=== PATIENT | female | born 2000 | race Caucasian/White ===

== ENCOUNTER 2024-12-26 01:47 | Inpatient (IN) | payer OTHER, SELFPAY ==
[2024-12-26] VITALS (30 sets, daily range): BP systolic 99–148; BP diastolic 50–101; PULSE 72–127; TEMP 36.3–37.1
[2024-12-26] MEDS: LACTATED RINGER'S SOLUTION 1,000 ML 125 ML IV (02:20)
[2024-12-26 02:45] LABS: Hematocrit 37.7 % (36.0-48.0); Mean Corpuscular HGB Conc 34.5 g/dL (29.9-35.2); Mean Corpuscular Hemoglobin 30.7 pg (26.7-34.0); Mean Corpuscular Volume 88.9 fL (81.0-99.0); Mean Platelet Volume 11.4 fL (9.5-13.5); Platelet Count 167 10^3/uL (150-450); Red Blood Count 4.24 10^6/uL (4.20-5.40); Red Cell Distribution Width 13.3 % (11.0-15.0); White Blood Count 11.5 10^3/uL (4.0-11.0)
[2024-12-26 02:46] LABS: Bilirubin Urine NEGATIVE (NEGATIVE); Blood Urine SMALL (NEGATIVE); Clarity Urine CLEAR (CLEAR); Color Urine LT. YELLOW (YELLOW); Glucose Urine UA NEGATIVE (NEGATIVE); Ketones Urine 15 mg/dL (NEGATIVE); Leukocyte Esterase Urine NEGATIVE (NEGATIVE); Nitrite Urine NEGATIVE (NEGATIVE); Protein Urine NEGATIVE (NEG/TRACE); Urobilinogen Urine 0.2 EU/dL (0.2-1.0)
[2024-12-26 02:47] LABS: Urine Microscopic Indicated YES
[2024-12-26] MEDS: PENICILLIN G POTASSIUM 5,000,000 UNIT in 0.9 % SODIUM CHLORIDE 100 ML 200 UNIT IV (02:51)
[2024-12-26 02:52] LABS: RBC Urine 0-2 #/HPF (0-2); WBC Urine NONE SEEN #/HPF (NONE SEEN)
[2024-12-26 02:53] LABS: Bacteria Urine NONE SEEN #/HPF (NONE SEEN); Cast Seen? NONE SEEN #/LPF (NONE SEEN); Crystals Seen? None Seen #/HPF (None Seen); Mucus Urine NONE SEEN (NONE SEEN); Squamous Epithelial Cell Urine FEW #/LPF (NONE/RARE); Urine Culture Indicated NO
[2024-12-26 02:56] LABS: Amphetamine Screen Urine NEGATIVE (NEGATIVE); Barbiturates Screen Urine NEGATIVE (NEGATIVE); Benzodiazepines Screen Urine NEGATIVE (NEGATIVE); Buprenorphine Screen Urine NEGATIVE (NEGATIVE); Cannabinoid Screen Urine NEGATIVE (NEGATIVE); Cocaine Screen Urine NEGATIVE (NEGATIVE); Methadone Screen Urine NEGATIVE (NEGATIVE); Methamphetamines Screen Urine NEGATIVE (NEGATIVE); Opiate Screen Urine NEGATIVE (NEGATIVE); Oxycodone Screen Urine NEGATIVE (NEGATIVE); Phencyclidine Screen Urine NEGATIVE (NEGATIVE); Tricyclic Antidepressant Urine NEGATIVE (NEGATIVE)
--- NOTE | 2024-12-26 03:06 | PM.OBHP ---
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 Exam now at admission and no lesions noted, and patient states she has no c/o lesion, outbreaks or pain Labs Blood type: A (+) positive Rubella: nonimmune RPR/VDLR: nonreactive GBS status: positive HBsAG: negative Meds Home Medications and Allergies Allergies Allergy/AdvReac Type Severity Reaction Status Date / Time No Known Drug Allergies Allergy Verified 12/26/24 03:31 Exam Constitutional Vital Signs, click to edit/add: Last Vital Signs Pulse 106 H 12/26/24 02:56 BP 125/101 H 12/26/24 02:56 Documenting provider has reviewed patient's vital signs: yes Common normals: no apparent distress and average body habitus General appearance: cooperative, comfortable and well kempt Orientation/consciousness: Yes awake, Yes oriented to person, Yes oriented to place and Yes oriented to time HENMT Common normals: normocephalic Eye Common normals: EOMs intact bilaterally General eye: normal appearance of both eyes Neck & C-Spine Common normals: full ROM General: normal visual inspection Lymph Lymphatic: no lymphadenopathy noted Respiratory Common normals: normal respiratory effort, no retractions, no use of accessory muscles, clear to auscultation bilaterally and percussion normal Effort & inspection: able to speak in complete sentences Auscultation: clear to auscultation bilaterally Cardio Common normals: regular rate and regular rhythm Rate: regular rate Rhythm: regular rhythm GI Common normals: Normal to inspection, nondistended, normoactive bowel sounds present and non-tender Inspection: normal to inspection Palpation: soft Rectal Exam - Female: deferred Common normals: no CVA tenderness Back & Pelvis Common normals: no CVA tenderness Thoracic spine/upper back: normal to inspection Lumbar spine/lower back: normal to inspection Extremity Common normals: normal to inspection and full ROM Neuro Common normals: oriented x3 Sensorium/orientation: awake, alert, oriented to person, oriented to place and oriented to time Psych Common normals: mental status grossly normal, thought process normal, cooperative, affect normal, speech normal, activity/motor behavior normal, denies hallucinations, denies homicidal ideation and denies suicidal ideation Appearance: grossly normal Attitude: calm Activity/motor behavior: appropriate eye contact Results Labs Labs: Short CBC 12/26/24 Range/Units 02:20 WBC 11.5 H (4.0-11.0) 10^3/uL Hgb 13.0 (12.0-16.0) g/dL Hct 37.7 (36.0-48.0) % Plt Count 167 (150-450) 10^3/uL Urine 12/26/24 Range/Units 02:00 Urine Color Lt. yellow (YELLOW) Urine Clarity Clear (CLEAR) Urine pH 6.0 (5.0-9.0) Ur Specific [place] 1.020 (1.005-1.025) Urine Protein Negative (NEG/TRACE) mg/dL Urine Glucose (UA) Negative (NEGATIVE) mg/dL OB - A/P Assessment and Plan (1) Term : (2) Group B streptococcal bacteriuria: Plan admit for labor and delivery. Routine orders
[2024-12-26] MEDS: PENICILLIN G POTASSIUM 2,500,000 UNIT in 0.9 % SODIUM CHLORIDE 50 ML 100 UNIT IV (06:21)
[2024-12-26] MEDS: LIDOCAINE VISCOUS 2% 15 ML SOLUTION 5 ML TOPICAL (06:48)
[2024-12-26] MEDS: OXYTOCIN/0.9 % SODIUM CHLORIDE 20 UNITS/1,000 ML PLAST..BAG 999 UNIT IV (06:58)
[2024-12-26] MEDS: LIDOCAINE HCL 1% 200 MG/20 ML MDV INJ (06:59)
[2024-12-26] MEDS: GLYCERIN/WITCH HAZEL PADS 1 PAD TOPICAL (08:27)
[2024-12-26] MEDS: BENZOCAINE/MENTHOL 85 GRAM SPRAY BOTTLE 1 APPLIC TOPICAL (08:27)
--- NOTE | 2024-12-26 08:49 | PC.NURSE ---
0208- Pt admission assessment incomplete d/t pt unable to speak at this time d/t cxt's and pain.
--- NOTE | 2024-12-26 08:49 | PM.OBPRCVD ---
Procedure Procedure: Intrapartal events: None Induction method: none Delivery monitor: external FHT and external uterine Route of delivery: Episiotomy Description: none L&D Laceration Description: periurethral - 2nd degree and labial Delivery repair: Vicryl Estimated blood loss (mL): 200 Anesthesia type: nitrous oxide Disposition: no change Infant Gender: male presentation: vertex Placental delivery description: Spontaneous cord description: 3 Vessels heart rate - 1 minute: 100 bpm or Greater respiratory effort - 1 minute: Spontaneous/Strong Cry muscle tone - 1 minute: Active Movement reflex response - 1 minute: Minimal Response color - 1 minute: Bluish Hands or Feet total score - 1 minute: 8 heart rate - 5 minute: 100 bpm or Greater respiratory effort - 5 minute: Spontaneous/Strong Cry muscle tone - 5 minute: Active Movement reflex response - 5 minute: Prompt Response color - 5 minute: Bluish Hands or Feet total score - 5 minute: 9
--- NOTE | 2024-12-26 08:52 | PC.NURSE ---
Repair in progress at this time per Yu Justice CNM. RN remains at bedside.
--- NOTE | 2024-12-26 08:57 | PC.NURSE ---
Repair remains in progress at this time.
[2024-12-26] MEDS: IBUPROFEN 400 MG TABLET 800 MG PO ×2 (12:29→21:16)
[2024-12-27 01:51] VITALS: BP 116/55; PULSE 81
[2024-12-27 01:52] VITALS: TEMP 36.2
[2024-12-27 06:33] LABS: Basophils Percent Auto 0.2 % (0.2-2.0); Eosinophils Absolute Auto 0.1 10^3/uL (0.0-0.7); Eosinophils Percent Auto 0.4 % (0.9-7.0); Hematocrit 32.2 % (36.0-48.0); Hemoglobin 10.9 g/dL (12.0-16.0); Immature Granulocytes Abs Auto 0.04 10^3/uL (0.00-0.03); Immature Granulocytes Pct Auto 0.4 % (0.0-0.5); Lymphocytes Absolute Auto 2.1 10^3/uL (1.2-3.8); Lymphocytes Percent Auto 18.3 % (20.5-60.0); Mean Corpuscular HGB Conc 33.9 g/dL (29.9-35.2); Mean Corpuscular Hemoglobin 30.7 pg (26.7-34.0); Mean Corpuscular Volume 90.7 fL (81.0-99.0); Mean Platelet Volume 11.2 fL (9.5-13.5); Monocytes Absolute Auto 0.8 10^3/uL (0.3-0.8); Monocytes Percent Auto 7.3 % (1.7-12.0); Neutrophils Absolute Auto 8.3 10^3/uL (1.4-6.5); Neutrophils Percent Auto 73.4 % (43.0-75.0); Platelet Count 151 10^3/uL (150-450); Red Blood Count 3.55 10^6/uL (4.20-5.40); Red Cell Distribution Width 13.5 % (11.0-15.0); White Blood Count 11.3 10^3/uL (4.0-11.0)
[2024-12-27] MEDS: IBUPROFEN 400 MG TABLET 800 MG PO ×2 (08:26→22:49)
[2024-12-27] MEDS: GLYCERIN/WITCH HAZEL PADS 1 PAD TOPICAL (08:26)
[2024-12-27] MEDS: DOCUSATE SODIUM 100 MG CAPSULE PO ×2 (08:26→22:49)
[2024-12-27 08:30] VITALS: BP 115/59; PULSE 93
--- NOTE | 2024-12-27 09:37 | PM.OBPN ---
OB - PN: Subj Subjective Patient comments: no complaints Coleman status: doing well Coleman feeding status: exclusively Exam Constitutional Vital Signs, click to edit/add: Last Vital Signs Temp 97.2 F L 12/27/24 01:52 Pulse 93 H 12/27/24 08:30 Resp 18 12/27/24 01:50 BP 115/59 12/27/24 08:30 O2 Del Method Room Air 12/27/24 01:50 Documenting provider has reviewed patient's vital signs: yes Common normals: no apparent distress General appearance: cooperative and comfortable HENMT Common normals: normocephalic Eye Common normals: EOMs intact bilaterally Neck & C-Spine Common normals: full ROM and no lymphadenopathy Lymph Lymphatic: no lymphadenopathy noted Chest Common normals: inspection of chest normal Respiratory Common normals: normal respiratory effort, no retractions, no use of accessory muscles and clear to auscultation bilaterally Effort & inspection: able to speak in complete sentences Auscultation: clear to auscultation bilaterally Cardio Common normals: regular rate and regular rhythm Rate: regular rate Rhythm: regular rhythm GI Common normals: Normal to inspection, nondistended, normoactive bowel sounds present, soft to palpation and non-tender Inspection: normal to inspection Auscultation: normoactive bowel sounds Palpation: soft Common normals: no CVA tenderness Back & Pelvis Common normals: no CVA tenderness Thoracic spine/upper back: normal to inspection Lumbar spine/lower back: normal to inspection Extremity Common normals: normal to inspection, full ROM and normal capillary refill Neuro Common normals: oriented x3 Sensorium/orientation: awake, alert, oriented to person, oriented to place and oriented to time Psych Common normals: mental status grossly normal, thought process normal, cooperative, affect normal, speech normal, activity/motor behavior normal, denies hallucinations, denies homicidal ideation and denies suicidal ideation Results Labs Labs: Short CBC 12/27/24 Range/Units 06:25 WBC 11.3 H (4.0-11.0) 10^3/uL Hgb 10.9 L (12.0-16.0) g/dL Hct 32.2 L (36.0-48.0) % Plt Count 151 (150-450) 10^3/uL Urinary Catheter Management Urinary Catheter Management Straight: Cath placed during this visit: yes Urethral indwelling: No Insertion date: 12/26/24 OB - PN: A/P Assessment and Plan (1) Term : (2) Group B streptococcal bacteriuria: Plan - Vaginal Delivery day: 1 Plan: routine care Time Spent with Patient Time: Total time spent is greater than 50% in coordination of care (as documented) at patient's floor/unit and/or counseling patient: Total time spent with greater than 50% in coordination of care (as documented) at patient's floor/unit and/or counseling patient: less than 15 minutes
--- NOTE | 2024-12-27 15:09 | W.PC.ACHO ---
Registration Status: ADM IN Primary Language: Qatari Preferred Language: Qatari Report received from Sarah RN at 0710. Care assumed by this RN. Active Medications Generic Name Dose Route Start Last Admin Trade Name Laya PRN Reason Stop Dose Admin Acetaminophen 650 mg 12/26/24 07:30 Acetaminophen 325 Mg Tablet PO Q6H PRN Mild Pain Al Hydroxide/Mg Hydroxide 2,400 mg 12/26/24 07:30 Magnesium Hydroxide 2,400 Mg/10 Ml Oral.Susp PO Q6H PRN Dyspepsia Benzocaine/Menthol 1 applic 12/26/24 07:30 12/26/24 08:27 Benzocaine/Menthol 85 Gram [place] Bottle TOPICAL 1 applic Q2H PRN Administration Pain Diphtheria/Pertussis/Tetanus Vacc 0.5 ml 12/28/24 09:00 Adacel Diph,Pertuss(Acell),Tet Vac/Pf 0.5 Ml Adult Syringe IM 12/28/24 09:01 .ONCE ONE Docusate Sodium 100 mg 12/27/24 09:00 12/27/24 08:26 Docusate Sodium 100 Mg Capsule PO 100 mg BID ALECIA Administration Ibuprofen 800 mg 12/26/24 07:30 12/27/24 08:26 Ibuprofen 400 Mg Tablet PO 800 mg Q8H ALECIA Administration Ondansetron HCl 4 mg 12/26/24 02:10 Ondansetron 4 Mg Rapdis Tablet SL Q6H PRN Nausea And Vomiting Ondansetron HCl 4 mg 12/26/24 02:10 Ondansetron Pf 4 Mg/2 Ml Vial IV Q6H PRN Nausea And Vomiting Senna 17.2 mg 12/26/24 20:00 Sennosides 8.6 Mg Tablet PO QHS PRN Constipation Simethicone 80 mg 12/26/24 07:30 Simethicone 80 Mg Tab.Chew PO QID PRN Abdominal Distention Temazepam 15 mg 12/26/24 20:00 Temazepam 15 Mg Capsule PO QHS PRN Sleep Witch Lynn/Glycerin 1 pad 12/26/24 07:30 12/27/24 08:26 Glycerin/Witch Lynn Pads TOPICAL 1 pad Q2H PRN Administration Pain Respiratory Oxygen Delivery Method Room Air Oxygen Delivery Method Room Air Oxygen Delivery Method Room Air Cardiology Heart Sounds Strong,Regular Heart Sounds Strong,Regular Bowels Bowel Pattern No Bowel Movement Renal Bladder Pattern Continent Bladder Pattern Continent Bladder Pattern Continent Catheter Urinary Catheter Date of 12/26/24 Insertion [Straight]
[2024-12-27 15:45] VITALS: TEMP 36.7
[2024-12-27 15:56] VITALS: BP 115/63; PULSE 81
[2024-12-27 23:46] VITALS: BP 111/61; PULSE 72; TEMP 37
--- NOTE | 2024-12-28 07:38 | P.OBPN_ITS ---
OB - PN: Subj Subjective Patient comments: no complaints and pain well controlled [place] status: doing well Exam Constitutional Vital Signs, click to edit/add: Last Vital Signs Temp 98.6 F 12/27/24 23:46 Pulse 72 12/27/24 23:46 Resp 14 12/27/24 15:45 BP 111/61 12/27/24 23:46 O2 Del Method Room Air 12/28/24 00:00 Documenting provider has reviewed patient's vital signs: yes Common normals: no apparent distress Respiratory Common normals: normal respiratory effort and clear to auscultation bilaterally Cardio Common normals: regular rate and regular rhythm GI Common normals: Normal to inspection, nondistended, normoactive bowel sounds present Extremity Common normals: no clubbing, cyanosis or edema and no calf tenderness Urinary Catheter Management Urinary Catheter Management Straight: Cath placed during this visit: yes Urethral indwelling: No Insertion date: 12/26/24 OB - PN: A/P Assessment and Plan (1) Term : (2) Group B streptococcal bacteriuria: Plan - Vaginal Delivery day: 2 Plan: routine care, discharge home and other (fu 2wks) Time Spent with Patient Time: Total time spent is greater than 50% in coordination of care (as documented) at patient's floor/unit and/or counseling patient: Total time spent with greater than 50% in coordination of care (as documented) at patient's floor/unit and/or counseling patient: less than 15 minutes
[2024-12-28 08:30] VITALS: TEMP 36.3
[2024-12-28 08:37] VITALS: BP 151/69; PULSE 102
[2024-12-28] MEDS: DOCUSATE SODIUM 100 MG CAPSULE PO (08:38)
[2024-12-28] MEDS: IBUPROFEN 400 MG TABLET 800 MG PO (08:38)
[2024-12-28 08:40] VITALS: BP 119/54; PULSE 93
[2024-12-28] MEDS: GLYCERIN/WITCH HAZEL PADS 1 PAD TOPICAL (13:40)
== END 2024-12-28 15:00 | disposition home or self-care (01) | DRG 806 ==
PROVIDERS: Admitting Provider Midwife; Visit Provider Midwife
DX: O99.824 Streptococcus B carrier state complicating childbirth (principal); O98.32 Other infections with a predominantly sexual mode of transmission complicating childbirth; Z37.0 Single live birth; O70.1 Second degree perineal laceration during delivery; A60.09 Herpesviral infection of other urogenital tract; Z3A.39 39 weeks gestation of pregnancy; Z23 Encounter for immunization
CPT/HCPCS: 36415; 51701; 59050; 59410; 80307; 81001; 85025; 85027; 86850; 86900; 86901; J2540